=== PATIENT | female | born 1990 | race Caucasian/White ===

== ENCOUNTER → 2019-12-17 | Outpatient (CLI) | payer BC ==
[~2019-12-17] MED LIST: CEFD300C37 PO; CYCL-259 PO; PNV61CAP PO
== END | disposition home or self-care (01) ==
LOC: RAD 13:26
PROVIDERS: ATTEND Family Medicine
DX: M51.24 Other intervertebral disc displacement, thoracic region (principal); M41.84 Other forms of scoliosis, thoracic region; R20.2 Paresthesia of skin
CPT/HCPCS: 72082; 72146